=== PATIENT | female | born 1945 | race Caucasian/White ===

== ENCOUNTER 2017-03-01 14:25 | Emergency (ER) | payer MEDICARE ==
[2017-03-01] MEDS ORDERED: HYDROmorphone 1 MG/ML Syringe IM ONE (14:52)
--- NOTE | 2017-03-01 14:54 | EDM.PDOC ---
ED HPI GENERAL MEDICAL PROBLEM - General Chief Complaint: Laceration Stated Complaint: LACERATION RT HAND Time Seen by Provider: 03/01/17 14:50 Source of Information: Reports: Patient History Limitations: Reports: No Limitations - History of Present Illness INITIAL COMMENTS - FREE TEXT/NARRATIVE: HISTORY AND PHYSICAL: History of present illness: [Comes to the emergency room complaining of lacerations to her left index, middle and ring fingers. Caused by a table saw she was using to cut some wood. Complains of pain and bleeding. Last tetanus was approx 6 years ago. Has no other complaints or concerns at this time. Review of systems: As per history of present illness and below otherwise all systems reviewed and negative. Past medical history: As per history of present illness and as reviewed below otherwise noncontributory. Surgical history: As per history of present illness and as reviewed below otherwise noncontributory. Social history: No reported history of drug or alcohol abuse. Family history: As per history of present illness and as reviewed below otherwise noncontributory. Physical exam: Gen.: Well-developed, well-nourished female in no acute distress. Extremities: Pads of L index, middle and ring fingers show jagged lacerations and a partial amputation to her lateral index finger. Atraumatic, negative for cords or calf pain. Neurovascular unremarkable. Neuro: Awake, alert, oriented. Cranial nerves II through XII unremarkable. Cerebellum unremarkable. Motor and sensory unremarkable throughout. Exam nonfocal. Diagnostics: [Left hand x-rays] Therapeutics: [Dilaudid 1 mg IM Adacel IM] Impression: [laceration to index, middle, and ring fingers of L hand Fracture of the distal phalanx of the index finger of L hand] Plan: [Lacerations are closed. See procedure note. Xeroform gauze is placed over lacerations, with instructions given to keep dressing in place x 48 hours. Index finger is splinted. Referral is made for patient to see Dr. Jazmyn Goodwin early next week. Cephalexin 500mg (#30) si po TID 0 RF's, and Tramadol 50mg (#15) si po q 6 hours prn pain 0 RF's are sent through [facility]. Strict return precautions are reviewed w/ the patient. ] Definitive disposition and diagnosis as appropriate pending reevaluation and review of above. left 2-4 Pain Score (Numeric/FACES): 6 - Related Data Allergies Allergy/AdvReac Type Severity Reaction Status Date / Time No Known Allergies Allergy Verified 03/01/17 14:29 Home Meds: Home Meds Gabapentin [Neurontin] 300 mg PO DAILY 08/26/13 [History] Metoprolol Succinate 12.5 mg PO 08/26/13 [History] Naproxen Sodium [Aleve] 220 mg PO 08/26/13 [History] Sertraline [Zoloft] 50 mg PO DAILY 08/26/13 [History] Sulfamethoxazole/Trimethoprim [Bactrim Ds Tablet] 1 each PO BID #14 tablet 08/26 [Rx] buPROPion [Wellbutrin] 75 mg PO BEDTIME 08/26/13 [History] Past Medical History Cardiovascular History: Reports: High Cholesterol Psychiatric History: Reports: Depression - Past Surgical History Cardiovascular Surgical History: Reports: Coronary Artery Bypass GI Surgical History: Reports: Appendectomy, Cholecystectomy Social & Family History - Family History Family Medical History: Noncontributory - Tobacco Use Smoking Status *Q: Current Every Day Smoker Years of Tobacco use: 58 Packs/Tins Daily: 1 - Alcohol Use Days Per Week of Alcohol Use: 0 - Recreational Drug Use Recreational Drug Use: No ED ROS GENERAL - Review of Systems Review Of Systems: ROS reveals no pertinent complaints other than HPI. ED EXAM, SKIN/RASH Exam: See Below ED SKIN PROCEDURES - Laceration/Wound Repair Left Distal Finger Lac/Wound length In cm: 2 (various lengths and depths of lacerations. Tissue is mangled and wound edges are very difficult to approximate. ) Appearance: Subcutaneous, Muscle, Clean Distal NVT: Neuro & Vascular Intact, No Tendon Injury Anesthetic Type: Digital Local Anesthesia - Lidocaine (Xylocaine): 1% Plain, Other (0.25% bupivicaine) Local Anesthetic Volume: Other (6) Exploration/Debridement/Repair: Wound Explored, Minimal Debridement, No Foreign Material Found, Multiple Flaps Aligned Closed with: Sutures Suture Size: 4-0 # of Sutures: 15 (5 sutures placed to each finger) Suture Type: Nylon, Interrupted Sterile Dressing Applied: Nurse Tetanus Status Addressed: Yes Complications: No Course - Vital Signs Last Recorded V/S: Last Vital Signs Temp 95.8 F 03/01/17 14:30 Pulse 67 03/01/17 14:30 Resp 18 12/10/17 14:30 BP 151/70 H 03/01/17 14:30 Pulse Ox 96 03/01/17 14:30 - Orders/Labs/Meds Orders: Active Orders 24 hr Category Date Time Status Vaccines to be Administered [RC] PER UNIT ROUTINE Care 03/01/17 16:35 Active Hand 2V Lt [CR] Stat Exams 03/01/17 14:51 Taken Meds: Medications Discontinued Medications Generic Name Dose Route Start Last Admin Trade Name Leslie PRN Reason Stop Dose Admin Bacitracin 2 dose 03/01/17 16:36 03/01/17 16:46 Bacitracin Oint 1 Gm TOP 03/01/17 16:37 2 dose ONETIME ONE Administration Bupivacaine HCl Confirm 03/01/17 14:58 03/01/17 15:02 Sensorcaine-Mpf 0.5% Administered 03/01/17 14:59 5 ml Dose Administration 10 ml .ROUTE .STK-MED ONE Diphtheria/Tetanus/Acell Pertussis 0.5 ml 03/01/17 16:35 03/01/17 16:44 Adacel IM 03/01/17 16:36 0.5 ml .ONCE ONE Administration Hydromorphone HCl 1 mg 03/01/17 14:52 03/01/17 15:02 Dilaudid IM 03/01/17 14:53 1 mg ONETIME ONE Administration Lidocaine HCl 20 ml 03/01/17 14:56 03/01/17 15:32 Xylocaine 1% INJECT 03/01/17 14:57 5 ml ONETIME ONE Administration Ondansetron HCl 4 mg 03/01/17 14:56 03/01/17 15:02 Zofran Odt PO 03/01/17 14:57 4 mg ONETIME ONE Administration Departure - Departure Time of Disposition: 16:50 Disposition: Home, Self-Care 01 Condition: Good Clinical Impression: Laceration of fingers without complication - Discharge Information Instructions: Nail Bed Injury, [id number] Referrals: Anna Rosenthal MAIL PROCESSING MACHINE OPERATOR [Primary Care Provider] - Jazmyn Goodwin MD [Physician] - Forms: ED Department Discharge Additional Instructions: The following information is given to patients seen in the emergency department who are being discharged to home. This information is to outline your options for follow-up care. We provide all patients seen in our emergency department with a follow-up referral. The need for follow-up, as well as the timing and circumstances, are variable depending upon the specifics of your emergency department visit. If you don't have a primary care physician on staff, we will provide you with a referral. We always advise you to contact your personal physician following an emergency department visit to inform them of the circumstance of the visit and for follow-up with them and/or the need for any referrals to a consulting specialist. The emergency department will also refer you to a specialist when appropriate. This referral assures that you have the opportunity for follow-up care with a specialist. All of these measure are taken in an effort to provide you with optimal care, which includes your follow-up. Under all circumstances we always encourage you to contact your private physician who remains a resource for coordinating your care. When calling for follow-up care, please make the office aware that this follow-up is from your recent emergency room visit. If for any reason you are refused follow-up, please contact the [facility] emergency department at and asked to speak to the emergency department charge nurse. [facility] Specialty care- [facility] [address] [place] [address], [address] [place] [address] Dr. Goodwin's office will call tomorrow to get you scheduled for an appointment in the next couple of days. Keep wounds covered and dressed until follow up. Keep clean and dry. Take antibiotic as prescribed, and pain medication as needed. Return to ER as needed as discussed. - My Orders Last 24 Hours: My Active Orders 03/01/17 14:51 Hand 2V Lt [CR] Stat 03/01/17 16:35 Vaccines to be Administered [RC] PER UNIT ROUTINE - Assessment/Plan Last 24 Hours: My Active Orders 03/01/17 14:51 Hand 2V Lt [CR] Stat 03/01/17 16:35 Vaccines to be Administered [RC] PER UNIT ROUTINE
[2017-03-01] MEDS ORDERED: Lidocaine 1% 20 ML MDV INJECT ONE (14:56)
[2017-03-01] MEDS ORDERED: Ondansetron 4 MG Tab.DIS PO ONE (14:56)
[2017-03-01] MEDS ORDERED: Bupivacaine 0.5% 10 ML SDV ONE (14:58)
[2017-03-01] MEDS ORDERED: Diphtheria,Pertussis(Acell),Tetanus Vaccine 0.5 ML Syringe IM ONE (16:35)
[2017-03-01] MEDS ORDERED: Bacitracin Oint 1 GM U/D Packet TOP ONE (16:36)
--- NOTE | 2017-03-02 19:53 | CR ---
EXAM DATE: 03/01/17 PATIENT'S AGE: 71 Patient: BASIL ROSS Facility: [place], [place] Site . Site : 1945 Study: XRay Extremity Left hand [id number]/10/2017 3:16:46 PM Ordering Physician: Doctor Nguyen Final Report: HISTORY: Laceration from table saw. TECHNIQUE: Two views of the left hand. COMPARISON: No prior. FINDINGS: There is soft tissue deformity involving the distal aspects of the index and middle fingers. There is a bony defect involving the distal tuft of the distal phalanx of the index finger compatible with fracture. No definite fracture of the distal phalanx of the middle finger. Small soft tissue defect involving the distal ring finger without underlying fracture. No radiopaque foreign bodies at site of laceration. 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 Joint spaces appear otherwise maintained. IMPRESSION: 1. Soft tissue injuries involving the index, middle and ring fingers of the left hand. 2. Fracture of the distal phalanx of the index finger of the left hand. Dictated by Eulalio Arreola MD @ 03/01/2017 3:42:58 PM Dictated by: Eulalio Arreola MD @ 03/01/2017 15:43:05 (Electronic Signature) Report Signed by Proxy. CONSTANZA
== END 2017-03-01 17:19 | disposition home or self-care (01) ==
LOC: MW.ED 14:25
DX: S62.631A Displaced fracture of distal phalanx of left index finger, initial encounter for closed fracture (principal); S61.215A Laceration without foreign body of left ring finger without damage to nail, initial encounter; S61.213A Laceration without foreign body of left middle finger without damage to nail, initial encounter; S61.211A Laceration without foreign body of left index finger without damage to nail, initial encounter; E78.00 Pure hypercholesterolemia, unspecified; F17.210 Nicotine dependence, cigarettes, uncomplicated; Z23 Encounter for immunization; Z79.899 Other long term (current) drug therapy; W31.2XXA Contact with powered woodworking and forming machines, initial encounter
CPT/HCPCS: 12001; 73120; 90471; 90715; 96372; 99283; A9270; J1170

== ENCOUNTER 2017-06-25 09:41 | Day surgery (SDC) | payer MEDICARE ==
[~2017-06-25 09:41] MED LIST: Lactated Ringers 1,000 ML IV SCH; Lidocaine 2% 5 ML SDV ONE; Propofol 200 MG/20 ML SDV ONE; Sodium Chloride 0.9% 10 ML Syringe FLUSH PRN; Sodium Chloride 0.9% 2.5 ML Syringe FLUSH PRN; fentaNYL 100 MCG/2 ML SDV ONE
--- NOTE | 2017-06-25 10:06 | PCM.PREANE ---
Preanesthetic Assessment - Anesthesia/Transfusion/Family Hx Anesthesia History: Prior Anesthesia Without Reaction Family History of Anesthesia Reaction: No Transfusion History: No Prior Transfusion(s) Intubation History: Unknown - Review of Systems General: No Symptoms Pulmonary: No Symptoms Cardiovascular: No Symptoms Gastrointestinal: Other (dark stools) Neurological: No Symptoms Other: Reports: None - Physical Assessment Height: 1.6 m Weight: 67.585 kg ASA Class: 3 Mental Status: Alert & Oriented x3 Airway Class: Mallampati = 2 Dentition: Reports: Dentures (upper and lower) Thyro-Mental Finger Breadths: 3 Mouth Opening Finger Breadths: 2 ROM/Head Extension: Full Lungs: Clear to Auscultation, Normal Respiratory Effort Cardiovascular: Regular Rate, Regular Rhythm - Allergies Allergies/Adverse Reactions: Allergies Allergy/AdvReac Type Severity Reaction Status Date / Time No Known Allergies Allergy Verified 06/22/17 10:42 - Blood Blood Available: No - Anesthesia Plan Pre-Op Medication Ordered: None - Acknowledgements Anesthesia Type Planned: MAC Pt an Appropriate Candidate for the Planned Anesthesia: Yes Alternatives and Risks of Anesthesia Discussed w Pt/Guardian: Yes Pt/Guardian Understands and Agrees with Anesthesia Plan: Yes PreAnesthesia Questionnaire HEENT History: Reports: Other (See Below) Other HEENT History: wears glasses, has top and bottom dentures, has nessa hearing aids Cardiovascular History: Reports: CAD, High Cholesterol, Hypertension Gastrointestinal History: Reports: Diverticulosis, GERD, Hiatal Hernia Genitourinary History: Reports: None PHOTOGRAPHY SPOTTER History: Reports: Psychiatric History: Reports: Anxiety, Depression Oncologic (Cancer) History: Reports: Breast - Past Surgical History Head Surgeries/Procedures: Reports: None HEENT Surgical History: Reports: Other (See Below) Other HEENT Surgeries/Procedures: hx stapedectomy Cardiovascular Surgical History: Reports: Coronary Artery Bypass (x2 12 years ago. ok since), Coronary Artery Stent GI Surgical History: Reports: Appendectomy, Cholecystectomy, Colonoscopy (5 years ago) Female Surgical History: Reports: Breast Biopsy (lumpectomy) Oncologic Surgical History: Reports: Biopsy of Breast - SUBSTANCE USE Smoking Status *Q: Current Every Day Smoker Tobacco Use Within Last Twelve Months: Cigarettes Days Per Week of Alcohol Use: 0 Recreational Drug Use History: No - HOME MEDS Home Medications: Home Meds Gabapentin [Neurontin] 300 mg PO ACBREAKFAST 08/26/13 [History] Metoprolol Succinate 12.5 mg PO DAILY 08/26/13 [History] Sertraline [Zoloft] 50 mg PO DAILY 08/26/13 [History] buPROPion [Wellbutrin] 150 mg PO BID 08/26/13 [History] Aspirin [Kidder Aspirin] 81 mg PO DAILY 03/02/17 [History] Cholecalciferol (Vitamin D3) [Vitamin D3] 2,000 units PO DAILY 03/02/17 [History ] Esomeprazole Magnesium [Nexium] 20 mg PO DAILY 03/02/17 [History] Lutein/Minerals/Vit A,C & E [Ocuvite] 1 tab PO DAILY 03/02/17 [History] Multivitamin [Multivitamins] 1 tab PO DAILY 03/02/17 [History] [place]-3/DHA/Epa/Fish Oil [Fish Oil EC 1,000 MG Softgel] 1 tab PO DAILY 03/02/17 [History] atorvaSTATin Calcium [Atorvastatin Calcium] 80 mg PO BEDTIME 03/02/17 [History] Gabapentin [Neurontin] 600 mg PO BEDTIME 06/22/17 [History] L.acidoph,Paracasei, B.lactis [Probiotic] 1 tab PO DAILY 06/22/17 [History] Naproxen Sodium [Aleve] 2 tab PO ASDIRECTED PRN 06/22/17 [History] - CURRENT (IN HOUSE) MEDS Current Meds: Current Medications Lactated Ringer's (Ringers, Lactated) 1,000 mls @ 125 mls/hr IV ASDIRECTED CHANELL Sodium Chloride (Saline Flush) 10 ml FLUSH ASDIRECTED PRN PRN Reason: Keep Vein Open Sodium Chloride (Saline Flush) 2.5 ml FLUSH ASDIRECTED PRN PRN Reason: Keep Vein Open Sodium Chloride (Saline Flush) 10 ml FLUSH ASDIRECTED PRN PRN Reason: Keep Vein Open Sodium Chloride (Saline Flush) 2.5 ml FLUSH ASDIRECTED PRN PRN Reason: Keep Vein Open Discontinued Medications Fentanyl (Sublimaze) Confirm Administered Dose 100 mcg .ROUTE .STK-MED ONE Stop: 06/25/17 08:17 Lidocaine (Xylocaine-Mpf 2%) Confirm Administered Dose 5 ml .ROUTE .STK-MED ONE Stop: 06/25/17 08:17 Propofol (Diprivan 20 Ml) Confirm Administered Dose 400 mg .ROUTE .[facility] ONE Stop: 06/25/17 08:17
[2017-06-25] MEDS ORDERED: Glycopyrrolate 0.2 MG/ML SDV ONE (10:11)
--- NOTE | 2017-06-25 10:45 | PCM.OPNOTE ---
- General Post-Op/Procedure Note Date of Surgery/Procedure: 06/25/17 Operative Procedure(s): Diangostic EGD and colonoscopy Findings: Mild pyloric stenosis. Diverticulosis Pre Op Diagnosis: Melanic stool Post-Op Diagnosis: Mild pyloric stenosis. Diverticulosis Anesthesia Technique: MAC Primary Surgeon: Nelsy Calero Condition: Good
--- NOTE | 2017-06-25 11:19 | PCM48HPAN ---
Post Anesthesia Note - EVALUATION WITHIN 48HRS OF ANESTHETIC Vital Signs in Normal Range: Yes Patient Participated in Evaluation: Yes Respiratory Function Stable: Yes Airway Patent: Yes Cardiovascular Function Stable: Yes Hydration Status Stable: Yes Pain Control Satisfactory: Yes Nausea and Vomiting Control Satisfactory: Yes Mental Status Recovered: Yes Resp Rate: 13 - COMMENTS/OBSERVATIONS Free Text/Narrative:: no anesthesia problems
--- NOTE | 2017-06-25 13:24 | OR ---
SURGEON: NELSY CALERO MD DATE OF PROCEDURE: 06/25/2017 PREOPERATIVE DIAGNOSIS: Change in bowel habits. POSTOPERATIVE DIAGNOSES: 1. Hiatal hernia. 2. Mildly stenotic pylorus. 3. Diverticulosis. PROCEDURES PERFORMED: Diagnostic esophagogastroduodenoscopy and colonoscopy. ENDOSCOPIST: Nelsy Calero MD ANESTHESIA: Monitored anesthesia care. INSTRUMENT USED: Olympus endoscope and colonoscope. EXTENT OF EXAM: To the pylorus, to the cecum. LIMITATIONS: Stenotic pylorus. PREPARATION: Fair. INDICATIONS: The patient is a 72-year-old female, who I saw last year for melenic stool. The patient was scheduled to undergo an EGD and colonoscopy, I cancelled the procedure. She started taking a PPI and medication for lactose intolerance and her stool went back to normal. She is now back to reschedule her scopes. Her bowel habits have returned back to normal. We discussed the need for followup with a diagnostic EGD and colonoscopy. We discussed the procedures as well as expected perioperative course. We discussed the risks including bleeding, infection, or damage to surrounding structures including perforation. The patient verbalized understanding and wishes to proceed. PROCEDURE IN DETAIL: The patient was brought to the endoscopy suite and placed in the left lateral decubitus position. A time-out was completed verifying the patient's name, age, date of , allergies, and procedure to be performed. A bite block was placed in the patient's mouth and monitored anesthesia care induced. Continuous oxygen was provided via nasal cannula throughout the procedure. After adequate sedation was achieved, a well lubricated colonoscope was inserted into the mouth and advanced under direct visualization to the pylorus. Upon reaching the pylorus, it was noted to be narrowed. I attempted to get my scope to transverse this area; however, I was unsuccessful. I was able to look into the first portion of the duodenum. This appeared normal with no evidence of ulceration, and a photograph was taken. The scope was then pulled back and I took a photograph of the pylorus. There was a small amount of bleeding around the pylorus due to my attempting to traverse it with the scope. A biopsy was taken of the pylorus mucosa. There was no evidence of ulceration or inflammation in the antrum or pylorus of the stomach. The scope was then retroflexed. The patient was previously noted to have a hiatal hernia and this was confirmed with this view, and a photograph was taken. The scope was then straightened out. Biopsies were taken of the gastric antrum, body, and fundus and sent for H. pylori testing and histologic review. The scope was then brought into the distal esophagus. A photograph was taken of the hiatal hernia sac. There was no evidence of esophageal mucosal inflammation above the hiatal hernia sac. The remainder of the esophageal mucosa was normal. The scope was removed and this portion of procedure was terminated. A digital rectal exam was performed. This exam was within normal limits. A well lubricated colonoscope was inserted into the rectum and advanced under direct visualization to the level of cecum. The cecum was identified by both visual and anatomic landmarks. Photograph was taken of cecal cap; however, was unable to retroflex the scope within the cecum due to looping of the scope more proximally. The scope was then fully withdrawn while examining the color, texture, anatomy, and integrity of the mucosa from the cecum to the anal canal. The patient was noted to have diverticulosis. The scope was then brought into the rectum and retroflexed to allow visualization of the anal canal opening. This appeared normal and a photograph was taken. The scope was then straightened out and fully withdrawn. The cecum to anus time was 6 minutes. The patient tolerated the procedure well and was taken to PACU in stable condition. ENDOSCOPIC DIAGNOSES: 1. Hiatal hernia. 2. Mildly stenotic pylorus. 3. Diverticulosis. RECOMMENDATIONS: Follow up in clinic in 2 weeks. HAYDEE BRASHER /[id number]
== END 2017-06-25 11:20 | disposition home or self-care (01) ==
LOC: MW.SDS 09:41
PROVIDERS: ATTEND Surgery
DX: K57.30 Diverticulosis of large intestine without perforation or abscess without bleeding (principal); K44.9 Diaphragmatic hernia without obstruction or gangrene; K31.1 Adult hypertrophic pyloric stenosis; K31.89 Other diseases of stomach and duodenum; R19.4 Change in bowel habit; I25.10 Atherosclerotic heart disease of native coronary artery without angina pectoris; K21.9 Gastro-esophageal reflux disease without esophagitis; F32.9 Major depressive disorder, single episode, unspecified; F41.9 Anxiety disorder, unspecified; F41.8 Other specified anxiety disorders; F17.200 Nicotine dependence, unspecified, uncomplicated; Z79.82 Long term (current) use of aspirin; Z79.899 Other long term (current) drug therapy; Z90.49 Acquired absence of other specified parts of digestive tract; Z95.1 Presence of aortocoronary bypass graft; Z98.890 Other specified postprocedural states
CPT/HCPCS: 43239; 45378; J3010; J7120; 00813; 88305; 88312; J2704

== ENCOUNTER 2017-10-02 11:44 | Emergency (ER) | payer MEDICARE ==
--- NOTE | 2017-10-02 12:25 | EDM.PDOC ---
ED HPI GENERAL MEDICAL PROBLEM - General Chief Complaint: Skin Complaint Stated Complaint: CAT BITE ON LEG Time Seen by Provider: 10/02/17 12:09 - History of Present Illness INITIAL COMMENTS - FREE TEXT/NARRATIVE: HISTORY AND PHYSICAL: History of present illness: The patient is a 72-year-old female who is up-to-date on her tetanus shot and presents from our local clinic for reevaluation of a Wound on her left posterior soft tissue leg. The patient says she was bitten by her own cat 6 days ago and presented to the clinic after it had opened up and started draining. The provider there did a wound culture on August 30 and I reviewed that results which indicated Haemophilus influenza without any sensitivities. The patient was placed on Bactrim on the first visit on September 22 and has been doing well with that. She had a CBC today with normal results and the provider in the clinic thought that the wound might have more pus and thought she should be evaluated for possible drainage. Patient says that there is only minimal pain to the area and she is having no neurosensory changes and no inhibition to her normal activities. Patient has not noticed any streaking up her leg and has no systemic complaints especially no fever. Review of systems: As per history of present illness and below otherwise all systems reviewed and negative. Past medical history: As per history of present illness and as reviewed below otherwise noncontributory. Surgical history: As per history of present illness and as reviewed below otherwise noncontributory. Social history: No reported history of drug or alcohol abuse. Family history: As per history of present illness and as reviewed below otherwise noncontributory. Physical exam: General: Well-developed well-nourished female is nontoxic and age-related easily into the ED. Vital signs are reviewed by me HEENT: Atraumatic, normocephalic, negative for conjunctival pallor or scleral icterus, mucous membranes moist, throat clear, neck supple, nontender, trachea midline. Lungs: Clear to auscultation, breath sounds equal bilaterally, chest nontender. Heart: S1S2, regular rate and rhythm no overt murmurs Abdomen: Deferred . Pelvis: Deferred Genitourinary: Deferred. Rectal: Deferred. Extremities: Atraumatic full range of motion without defects or deficits and more specifically at the left posterior lower leg there is a 6 x 6.5 area of ill -defined pinkish erythema with a central area proximally 3 x 3 cm where there is an open wound. The area is nonfluctuant and I cannot express any drainage. There is no crepitus and there are no bony defects or compartment swelling appreciated. The patient can dorsi and plantar flex her foot and ambulate without discomfort. There is no discrete calf tenderness. The legs are, negative for cords or calf pain. Neurovascular unremarkable. Neuro: Awake, alert, oriented. Cranial nerves II through XII unremarkable. Cerebellum unremarkable. Motor and sensory unremarkable throughout. Exam nonfocal. Diagnostics: [] Therapeutics: [] I discussed with the patient that I do not appreciate any areas that require emergent drainage and that she should continue her Bactrim and I will add a second antibiotic to cover the Haeemophilis influenza likely sensitivities. She has appointment to see Dr. Andrea one of our surgeons next week and I told her that this may, more to ahead and need drainage or it may just continue to heal as it has been doing. Impression: Wound reevaluation, left leg cellulitis and draining abscess Definitive disposition and diagnosis as appropriate pending reevaluation and review of above. - Related Data Allergies Allergy/AdvReac Type Severity Reaction Status Date / Time No Known Allergies Allergy Verified 10/02/17 11:57 Home Meds: Home Meds Gabapentin [Neurontin] 300 mg PO ACBREAKFAST 08/26/13 [History] Metoprolol Succinate 12.5 mg PO DAILY 08/26/13 [History] Sertraline [Zoloft] 50 mg PO DAILY 08/26/13 [History] buPROPion [Wellbutrin] 150 mg PO BID 08/26/13 [History] Aspirin [Mchenry Aspirin] 81 mg PO DAILY 03/02/17 [History] Cholecalciferol (Vitamin D3) [Vitamin D3] 2,000 units PO DAILY 03/02/17 [History ] Esomeprazole Magnesium [Nexium] 20 mg PO DAILY 03/02/17 [History] Lutein/Minerals/Vit A,C & E [Ocuvite] 1 tab PO DAILY 03/02/17 [History] Multivitamin [Multivitamins] 1 tab PO DAILY 03/02/17 [History] Hewitt-3/DHA/Epa/Fish Oil [Fish Oil EC 1,000 MG Softgel] 1 tab PO DAILY 12/11/17 [History] atorvaSTATin Calcium [Atorvastatin Calcium] 80 mg PO BEDTIME 03/02/17 [History] Gabapentin [Neurontin] 600 mg PO BEDTIME 06/22/17 [History] L.acidoph,Paracasei, B.lactis [Probiotic] 1 tab PO DAILY 06/22/17 [History] Naproxen Sodium [Aleve] 2 tab PO ASDIRECTED PRN 06/22/17 [History] Sulfamethoxazole/Trimethoprim [Bactrim Ds Tablet] 1 each PO 10/02/17 [History] Past Medical History HEENT History: Reports: Other (See Below) Other HEENT History: wears glasses, has top and bottom dentures, has nessa hearing aids Cardiovascular History: Reports: High Cholesterol Gastrointestinal History: Reports: Diverticulosis, GERD, Hiatal Hernia Genitourinary History: Reports: None 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: Psychiatric History: Reports: Depression Oncologic (Cancer) History: Reports: Breast - Infectious Disease History Infectious Disease History: Reports: None - Past Surgical History Head Surgeries/Procedures: Reports: None HEENT Surgical History: Reports: Other (See Below) Other HEENT Surgeries/Procedures: hx stapedectomy Cardiovascular Surgical History: Reports: Coronary Artery Bypass GI Surgical History: Reports: Appendectomy, Cholecystectomy Female Surgical History: Reports: Breast Biopsy Oncologic Surgical History: Reports: Biopsy of Breast Social & Family History - Family History Family Medical History: Noncontributory - Tobacco Use Smoking Status *Q: Current Every Day Smoker Years of Tobacco use: 50 Packs/Tins Daily: 0.5 - Caffeine Use Caffeine Use: Reports: None - Recreational Drug Use Recreational Drug Use: No ED ROS GENERAL - Review of Systems Review Of Systems: ROS reveals no pertinent complaints other than HPI. ED EXAM, SKIN/RASH Exam: See Below (See dictation) Course - Vital Signs Last Recorded V/S: Last Vital Signs Temp 36.3 C 10/02/17 11:57 Pulse 71 10/02/17 11:57 Resp 16 10/02/17 11:57 BP 131/51 L 10/02/17 11:57 Pulse Ox 95 10/02/17 11:57 Departure - Departure Time of Disposition: 12:25 Disposition: Home, Self-Care 01 Condition: Good Clinical Impression: Encounter for evaluation of wound Cellulitis Qualifiers: Site of cellulitis: extremity Site of cellulitis of extremity: lower extremity Laterality: left Qualified Code(s): L03.116 - Cellulitis of left lower limb - Discharge Information Referrals: Anna Rosenthal, LABORATORY SUPERVISOR [Primary Care Provider] - Additional Instructions: The following information is given to patients seen in the emergency department who are being discharged to home. This information is to outline your options for follow-up care. We provide all patients seen in our emergency department with a follow-up referral. The need for follow-up, as well as the timing and circumstances, are variable depending upon the specifics of your emergency department visit. If you don't have a primary care physician on staff, we will provide you with a referral. We always advise you to contact your personal physician following an emergency department visit to inform them of the circumstance of the visit and for follow-up with them and/or the need for any referrals to a consulting specialist. The emergency department will also refer you to a specialist when appropriate. This referral assures that you have the opportunity for followup care with a specialist. All of these measure are taken in an effort to provide you with optimal care, which includes your followup. Under all circumstances we always encourage you to contact your private physician who remains a resource for coordinating your care. When calling for followup care, please make the office aware that this follow-up is from your recent emergency room visit. If for any reason you are refused follow-up, please contact the [facility] emergency department at and ask to speak to the emergency department charge nurse. [facility] Primary care- Internal Medicine and Family [address] [id number] Please keep your appointment next week with Dr. Andrea and also follow-up with Anna in the clinic for further care and evaluation. Continue and finish the Bactrim you're taking and add the new antibiotic as prescribed today. Cleanse the wound and do wound care as we discussed. Return to ER as needed and as discussed
== END 2017-10-02 12:54 | disposition home or self-care (01) ==
LOC: MW.ED 11:44
DX: L03.116 Cellulitis of left lower limb (principal); F17.210 Nicotine dependence, cigarettes, uncomplicated; E78.00 Pure hypercholesterolemia, unspecified; F32.9 Major depressive disorder, single episode, unspecified; Z79.899 Other long term (current) drug therapy; Z79.82 Long term (current) use of aspirin
CPT/HCPCS: 99283

== ENCOUNTER 2023-01-17 15:10 | Emergency (ER) | payer MEDICARE, OTHER | END 2023-01-17 17:03 | disposition home or self-care (01) | LOC: MW.ED 15:10 | DX: S89.92XA Unspecified injury of left lower leg, initial encounter (principal); E78.00 Pure hypercholesterolemia, unspecified; K21.9 Gastro-esophageal reflux disease without esophagitis; Z79.899 Other long term (current) drug therapy; Z79.82 Long term (current) use of aspirin; W01.0XXA Fall on same level from slipping, tripping and stumbling without subsequent striking against object, initial encounter | CPT/HCPCS: 73502-26-RT; 73502-RT; 73560-26-LT; 73560-LT; 99283 ==